=== PATIENT | male | born 1955 | race Caucasian/White ===

== ENCOUNTER 2020-05-03 16:16 | Outpatient (REF) | payer OTHER, SELFPAY ==
[2020-05-03 17:10] LABS: Creatinine Urine 27.49 mg/dL; Microalbumin Urine < 5.0 mg/L
== END 2020-05-03 16:17 | disposition home or self-care (01) ==
LOC: HO.LNP 16:16
PROVIDERS: Visit Provider Family Medicine
DX: I10 Essential (primary) hypertension (principal)
CPT/HCPCS: 82043

== ENCOUNTER 2021-10-27 07:15 | Outpatient (REF) | payer OTHER, SELFPAY ==
[2021-10-27 07:29] LABS: MANUAL DIFF FLAG NO
[2021-10-27 07:36] LABS: Basophils Percent Auto 0.7 % (0-2); Eosinophils Absolute Auto 0.2 X10*3/uL (0.0-0.4); Eosinophils Percent Auto 3.6 % (0-4); Hematocrit 41.3 % (42.0-52.0); Hemoglobin 13.5 g/dl (14.0-18.0); Imm Gran Abs Auto 0.01 X10*3/uL (0.00-0.03); Imm Gran Pct Auto 0.2 % (0.0-0.4); Lymphocytes Absolute Auto 2.8 X10*3/uL (1.2-4.9); Lymphocytes Percent Auto 46.7 % (20-40); Mean Corpuscular HGB Conc 32.7 g/dl (31.0-36.0); Mean Corpuscular Hemoglobin 30.1 pg (27.0-33.0); Mean Platelet Volume 9.1 fL (9.4-12.4); Monocytes Absolute Auto 0.5 X10*3/uL (0.1-1.2); Monocytes Percent Auto 8.6 % (2-11); Neutrophils Absolute Auto 2.4 x10*3/uL (2.0-8.3); Neutrophils Percent Auto 40.2 % (45-73); Platelet Count 224 X10*3/uL (160-400); Red Blood Count 4.49 X10*6/uL (4.60-5.80); Red Cell Distribution Width 13.1 % (11.0-16.0)
[2021-10-27 08:04] LABS: Alanine Aminotransferase 17 U/L (0-40); Alkaline Phosphatase 66 U/L (39-117); Anion Gap 10 (12-20); Aspartate Amino Transferase 16 U/L (5-37); Bilirubin Total 0.9 mg/dL (0.0-1.0); Blood Urea Nitrogen 12 mg/dL (9-16); Calcium 9.2 mg/dL (8.4-10.2); Carbon Dioxide 26 mmol/L (22-29); Chloride 108 mmol/L (96-108); Cholesterol 188 mg/dL; Estimated Glomerular Filt Rate > 60; Glucose Fasting 98 mg/dL (60-99); HDL Cholesterol 44 mg/dL; LDL Cholesterol Calculated 125 mg/dl; Potassium 4.1 mmol/L (3.3-5.1); Sodium 140 mmol/L (135-145); Total Protein 6.8 g/dL (6.5-8.0); Triglycerides 96 mg/dL
[2021-10-27 08:11] LABS: Appearance Urine CLEAR; Color Urine YELLOW; Glucose Urine UA NEG (NEG); Leukocyte Esterase Urine NEG (NEG); Nitrite Urine NEG (NEG); Specific Gravity - Urine 1.025 (1.005-1.025); Urine Blood NEG (NEG); Urine Ketones NEG (NEG); Urine Protein NEG (NEG-TRACE)
[2021-10-27 08:30] LABS: TSH reflex Free T4 4.59 uIU/mL (0.32-4.0)
[2021-10-27 09:07] LABS: Free T4 (Free Thyroxine) 0.87 ng/dL (0.71-1.85)
== END 2021-10-27 07:16 | disposition home or self-care (01) ==
LOC: HO.LAB 07:15
PROVIDERS: PCP Internal Medicine; Visit Provider Internal Medicine
DX: E78.00 Pure hypercholesterolemia, unspecified (principal); I10 Essential (primary) hypertension
CPT/HCPCS: 36415; 80053; 80061; 81003; 84439; 84443; 85025

== ENCOUNTER 2022-06-01 06:57 | Outpatient (REF) | payer OTHER, SELFPAY ==
[2022-06-01 07:19] LABS: MANUAL DIFF FLAG NO
[2022-06-01 08:15] LABS: Basophils Absolute Auto 0.1 X10*3/uL (0.0-0.2); Basophils Percent Auto 0.9 % (0-2); Eosinophils Absolute Auto 0.4 X10*3/uL (0.0-0.4); Eosinophils Percent Auto 5.3 % (0-4); Hematocrit 41.8 % (42.0-52.0); Hemoglobin 13.7 g/dl (14.0-18.0); Imm Gran Abs Auto 0.05 X10*3/uL (0.00-0.03); Imm Gran Pct Auto 0.7 % (0.0-0.4); Lymphocytes Absolute Auto 2.9 X10*3/uL (1.2-4.9); Lymphocytes Percent Auto 40.5 % (20-40); Mean Corpuscular HGB Conc 32.8 g/dl (31.0-36.0); Mean Corpuscular Hemoglobin 29.8 pg (27.0-33.0); Mean Corpuscular Volume 90.9 fL (80.0-98.0); Mean Platelet Volume 9.1 fL (9.4-12.4); Monocytes Absolute Auto 0.6 X10*3/uL (0.1-1.2); Neutrophils Absolute Auto 3.1 x10*3/uL (2.0-8.3); Neutrophils Percent Auto 43.6 % (45-73); Platelet Count 266 X10*3/uL (160-400); Red Cell Distribution Width 13.3 % (11.0-16.0)
[2022-06-01 08:34] LABS: Appearance Urine Clear; Color Urine Yellow; Glucose Urine UA Negative (Negative); Leukocyte Esterase Urine Negative (Negative); Nitrite Urine Negative (Negative); PH 5.5 (5.0-9.0); Specific Gravity - Urine 1.015 (1.005-1.025); Urine Blood Negative (Negative); Urine Ketones Negative (Negative); Urine Protein Negative (Neg-Trace)
[2022-06-01 09:01] LABS: Alanine Aminotransferase 17 U/L (0-40); Albumin Level 4.7 g/dL (3.5-5.0); Alkaline Phosphatase 69 U/L (39-117); Anion Gap 10 (12-20); Aspartate Amino Transferase 12 U/L (5-37); Bilirubin Total 0.8 mg/dL (0.0-1.0); Blood Urea Nitrogen 16 mg/dL (9-16); Calcium 9.1 mg/dL (8.4-10.2); Carbon Dioxide 29 mmol/L (22-29); Chloride 107 mmol/L (96-108); Cholesterol 245 mg/dL; Estimated Glomerular Filt Rate > 60; Free T4 (Free Thyroxine) 0.89 ng/dL (0.71-1.85); Glucose Fasting 92 mg/dL (60-99); HDL Cholesterol 43 mg/dL; LDL Cholesterol Calculated 175 mg/dl; Potassium 4.6 mmol/L (3.3-5.1); Sodium 141 mmol/L (135-145); Thyroid Stimulating Hormone 3.74 uIU/mL (0.32-4.0); Total Protein 6.8 g/dL (6.5-8.0); Triglycerides 138 mg/dL
== END 2022-06-01 06:58 | disposition home or self-care (01) ==
LOC: HO.LAB 06:57
PROVIDERS: PCP Internal Medicine; Visit Provider Internal Medicine
DX: E03.9 Hypothyroidism, unspecified (principal); R79.89 Other specified abnormal findings of blood chemistry; I10 Essential (primary) hypertension; E78.00 Pure hypercholesterolemia, unspecified
CPT/HCPCS: 36415; 80053; 80061; 81003; 84439; 84443; 85025

== ENCOUNTER 2023-02-05 09:38 | Outpatient (REF) | payer OTHER, SELFPAY ==
[2023-02-05 09:49] LABS: MANUAL DIFF FLAG NO
[2023-02-05 10:29] LABS: Basophils Absolute Auto 0.1 X10*3/uL (0.0-0.2); Basophils Percent Auto 0.6 % (0-2); Eosinophils Absolute Auto 0.2 X10*3/uL (0.0-0.4); Eosinophils Percent Auto 1.8 % (0-4); Hematocrit 44.2 % (42.0-52.0); Hemoglobin 14.5 g/dl (14.0-18.0); Imm Gran Abs Auto 0.03 X10*3/uL (0.00-0.03); Imm Gran Pct Auto 0.4 % (0.0-0.4); Lymphocytes Absolute Auto 2.2 X10*3/uL (1.2-4.9); Lymphocytes Percent Auto 26.4 % (20-40); Mean Corpuscular HGB Conc 32.8 g/dl (31.0-36.0); Mean Corpuscular Hemoglobin 30.4 pg (27.0-33.0); Mean Corpuscular Volume 92.7 fL (80.0-98.0); Mean Platelet Volume 9.2 fL (9.4-12.4); Monocytes Absolute Auto 0.7 X10*3/uL (0.1-1.2); Monocytes Percent Auto 8.1 % (2-11); Neutrophils Absolute Auto 5.2 x10*3/uL (2.0-8.3); Neutrophils Percent Auto 62.7 % (45-73); Platelet Count 234 X10*3/uL (160-400); Red Blood Count 4.77 X10*6/uL (4.60-5.80); Red Cell Distribution Width 12.7 % (11.0-16.0); White Blood Count 8.3 X10*3/uL (4.8-10.8)
[2023-02-05 11:20] LABS: Appearance Urine Clear; Color Urine Yellow; Glucose Urine UA Negative (Negative); Leukocyte Esterase Urine Negative (Negative); Nitrite Urine Negative (Negative); PH 6.5 (5.0-9.0); Specific Gravity - Urine 1.015 (1.005-1.025); Urine Blood Negative (Negative); Urine Ketones Negative (Negative); Urine Protein Negative (Neg-Trace)
[2023-02-05 11:30] LABS: Alanine Aminotransferase 19 U/L (0-40); Albumin Level 4.2 g/dL (3.5-5.0); Alkaline Phosphatase 68 U/L (39-117); Anion Gap 10 (12-20); Aspartate Amino Transferase 12 U/L (5-37); Bilirubin Total 0.7 mg/dL (0.0-1.0); Blood Urea Nitrogen 10 mg/dL (9-16); Carbon Dioxide 29 mmol/L (22-29); Chloride 108 mmol/L (96-108); Cholesterol 179 mg/dL; Estimated Glomerular Filt Rate > 60; Glucose Fasting 96 mg/dL (60-99); HDL Cholesterol 43 mg/dL; LDL Cholesterol Calculated 101 mg/dl; Potassium 4.1 mmol/L (3.3-5.1); Sodium 143 mmol/L (135-145); Total Protein 7.6 g/dL (6.5-8.0); Triglycerides 179 mg/dL
[2023-02-05 11:33] LABS: TSH reflex Free T4 4.14 uIU/mL (0.32-4.0)
[2023-02-05 11:41] LABS: Folate 13.2 ng/mL (> or = 4.0); Vitamin B12 479 pg/mL (200-900)
[2023-02-05 13:22] LABS: Free T4 (Free Thyroxine) 0.77 ng/dL (0.71-1.85)
== END 2023-02-05 09:39 | disposition home or self-care (01) ==
LOC: HO.LAB 09:38
PROVIDERS: PCP Internal Medicine; Visit Provider Internal Medicine
DX: E55.9 Vitamin D deficiency, unspecified (principal); E53.8 Deficiency of other specified B group vitamins; R30.0 Dysuria; E78.00 Pure hypercholesterolemia, unspecified; I10 Essential (primary) hypertension
CPT/HCPCS: 36415; 80053; 80061; 81003; 82306; 82607; 82746; 84439; 84443; 85025

== ENCOUNTER 2023-02-10 16:41 | Outpatient (AMB) | payer OTHER, SELFPAY ==
[2023-02-10 16:43] VITALS: BP 148/86; PULSE 83; O2SAT 97; BMI 29.9
--- NOTE | 2023-02-10 16:43 | MHC.PC.OV ---
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 Accompanied by: Self / Same As Patient Allergies No Known Allergies Allergy (Verified 02/10/23 17:00) Medication List - Last Reconciled 02/10/23 by Dawson Law MD simvastatin 20 mg PO DAILY Tobacco use date assessed: 02/10/23 Fall risk assessment: No Falls in past year Last assessed Fall Risk: 02/10/23 Dental Screening Dental Screen Date: 02/10/23 Did you have a dental visit in the last 12 months?: No Did you have a dental problem in the last 6 months where you did not have access to dental care?: No Was dental information given to patient?: Patient has dentist HPI Annual Exam HPI Details Patient comes in today for his annual physical examination States that he currently feels okay He denies any headaches or dizziness Denies any chest pains, no shortness of breath No nausea /vomiting, no abdominal pain No change in bowel habits noted Denies any acute urinary symptoms Had his follow up labs done a few days ago - to discuss his results Had his screening colonoscopy done with Dr. Kim in 2014 - recommended to get repeat colonoscopy in 10 years (2024) [facility] Medical History Benign essential hypertension Obesity (BMI 30-39.9) Overweight (BMI 25.0-29.9) Pure hypercholesterolemia Seasonal allergies Surgical History No pertinent past surgical history Family History Mother CHF (congestive heart failure) Father Brain aneurysm Other Mental health problem Social History Housing: House Alcohol intake: former Patient Tobacco Use Status: Never used Tobacco e-Cigarette/Vaping Use: Never Used Second Hand Smoke Exposure: Yes service: No Current occupational status: employed Cognitive needs: No Hearing needs: No Vision needs: Yes Questionnaire PHQ-9 Over the last 2 weeks, how often have you been bothered by any of the following problems? 1. Little interest or pleasure in doing things: not at all 2. Feeling down, depressed, or hopeless: not at all 3. Trouble falling or staying asleep, or sleeping too much: not at all 4. Feeling tired or having little energy: not at all 5. Poor appetite or overeating: not at all 6. Feeling bad about yourself - or that you are a failure or have let yourself or your family down: not at all 7. Trouble concentrating on things, such as reading the newspaper or watching television: not at all 8. Moving or speaking so slowly that other people could have noticed. Or the opposite - being so fidgety or restless that you have been moving around a lot more than usual: not at all 9. Thoughts that you would be better off or of hurting yourself in some way: not at all Total score: 0 Depression Screening Interpretation: Negative 53332 - PHQ-9 Billing: Yes Source: Developed by Drs. Dougie Pike, Ronda Jung, Zay Theodore and colleagues, with an educational dee from [employer]. Thrive Questionnaire Date Thrive assessed: 02/10/23 I am a: Patient What is your living situation today?: I have a steady place to live Within the past 12 months, did the food you bought not last and you didn't have the money to get more?: Never true Within the past 12 months, did you worry whether your food would run out before you got money to buy more?: Never true Do you have trouble paying for medicines?: No Do you have trouble getting transportation to medical appointments?: No Do you have trouble paying your heating and electricity bill?: No Do you have trouble taking care of your child, family member or friend?: No Do you have trouble with day-to-day activities such as bathing, preparing meals, shopping, managing finances, etc.?: No Are you currently unemployed and looking for a job?: No Are you interested in more education?: No Please select the resources that you would like help with: None Currently or been in a relationship where the following occur: no concerns reported AUDIT C Alcohol Use Questionnaire (AUDIT-C) 1. How often do you have a drink containing alcohol?: Never Total Score: 0 Score Reviewed/Action Taken: Yes BRITTNEY-7 AMB Questionnaire BRITTNEY-7 Date BRITTNEY - 7 assessed: 02/10/23 Feeling nervous, anxious, or on edge: 0 = Not at all Not being able to stop or control worryin = Not at all Worrying too much about different things: 0 = Not at all Trouble relaxin = Not at all Being so restless that it is hard to sit still: 0 = Not at all Becoming easily annoyed or irritable: 0 = Not at all Feeling afraid as if something awful might happen: 0 = Not at all Total BRITTNEY-7 score (0-4 normal; 5-9 mild; 10-14 moderate; 15-21 severe): 0 Source: Developed by Drs. Dougie Pike, Ronda Jung, Zay Theodore and colleagues, with an educational dee from [employer]. Review of Systems Const Denies chills, Denies fatigue, Denies fever(s), Denies headache(s), Denies malaise and Denies weakness Eyes Denies blurry vision, Denies change in vision, Denies irritation and Denies itchy eyes ENT Denies dysphagia, Denies dizziness, Denies otalgia, Denies headache(s), Denies nasal congestion, Denies neck pain, Denies odynophagia and Denies sore throat Card Denies chest pain, Denies rapid heart rate, Denies irregular heart rhythm, Denies palpitations and Denies dyspnea Resp Denies chest congestion, Denies cough, Denies dyspnea and Denies wheezing GI Denies abdominal pain, Denies bloating, Denies constipation, Denies dysphagia, Denies heartburn, Denies diarrhea, Denies nausea, Denies odynophagia and Denies vomiting Denies hematuria, Denies difficulty urinating, Denies dysuria, Denies urinary frequency and Denies urinary urgency Musc Denies back pain, Denies arthralgias, Denies joint swelling, Denies muscle weakness and Denies neck pain Skin/Breast Denies change in pigmentation, Denies lesions, Denies rash and Denies unusual bruising Neuro Denies dizziness, Denies headache(s), Denies paresthesias and Denies weakness Endo Denies fatigue and Denies palpitations Aller/Immun Denies itchy eyes and Denies wheezing Physical exam (Primary Care) Vital Signs: Last Vital Signs Pulse 83 02/10/23 16:43 BP 148/86 H 02/10/23 16:43 Pulse Ox 97 02/10/23 16:43 Oxygen Delivery Method Room Air 02/10/23 16:43 BMI result Body Mass Index 29.9 Tobacco/Smoking Status: Tobacco use Status Tobacco use date assessed 02/10/23 02/10/23 16:48 Patient Tobacco Use Status Never used Tobacco 02/10/23 16:48 e-Cigarette/Vaping Use Never Used 02/10/23 16:48 PHQ-9: PHQ-9 Score PHQ-9: Total score 0 02/11/23 02:17 Depression Screening Interpretation: Negative Thrive Assessment: Date of Thrive Assessment Date Thrive assessed 02/10/23 02/10/23 16:48 Currently or been in a relationship where the following occur: no concerns reported Const General: no acute distress, alert and awake Orientation/consciousness: patient oriented x3 HENMT Head: Yes normocephalic and Yes atraumatic Ears: external ears normal, TM's normal bilaterally and EAC's normal General nose exam: No nasal discharge present Face and sinus: Yes normal facial exam and Yes sinuses nontender Teeth and gingiva: dentition normal Throat: Yes posterior oropharynx normal and Yes tonsils normal (no TP congestion) Eyes Eyelids: Yes eyelids normal Conjunctivae: conjunctivae normal Pupils: Equal, round and reactive pupils present EOM: EOMs intact bilaterally Neck Neck: Yes no lymphadenopathy and Yes supple Thyroid: Thyroid normal Resp Auscultation: clear to auscultation bilaterally, no rales and no wheezes Cardio Rate: regular rate Rhythm: regular rhythm Heart sounds: no murmurs GI Palpation (GI): Soft to palpation, nontender and No hepatosplenomegaly present Auscultation: normal bowel sounds General: Yes no CVA tenderness Back/Spine/Pelvis Back: no CVA tenderness Thoracic/Lumbar Spine: thoracic and lumbar spine normal to inspection Skin Lesions: no lesions Rashes: no rashes Neuro General: patient oriented x3, moves all extremities, no focal motor deficits and CN's II-XI intact bilaterally Cranial nerves: Yes Equal, round and reactive pupils present Cognition (Neuro): normal cognition Gait exam (Neuro): Normal gait present Extrem General: Yes no clubbing, cyanosis or edema Results Reviewed Results Reviewed: Laboratory Tests 02/05/23 02/05/23 02/05/23 09:46 09:46 09:46 WBC 8.3 Hgb 14.5 Hct 44.2 Plt Count 234 Sodium 143 Potassium 4.1 Creatinine 0.99 Estimated GFR > 60 Fasting Glucose 96 Calcium 10.0 D AST 12 ALT 19 Triglycerides 179 Cholesterol 179 LDL Cholesterol, Calc 101 HDL Cholesterol 43 25-OH Vitamin D Total 38.0 TSH 4.14 H Free T4 0.77 Ur Specific [place] 1.015 Urine Protein Negative Urine Glucose (UA) Negative Urine Blood Negative Assessment and Plan Assessment & Plan (1) Annual physical exam: Code(s): Z00.00 - Encounter for general adult medical examination without abnormal findings Plan: Results of his labs done a few days ago reviewed and discussed with patient He is up-to-date with his cancer screenings - is not due for repeat colonoscopy until 2024 (2) Pure hypercholesterolemia: Code(s): E78.00 - Pure hypercholesterolemia, unspecified Plan: Reinforced low cholesterol diet - advised that his cholesterol levels have improved significantly from previous Continue Simvastatin 20 mg QD Will recheck his labs and fasting lipids in 6 months for follow up (3) Benign essential hypertension: Code(s): I10 - Essential (primary) hypertension Plan: Reinforced low sodium diet - goal is systolic BP of at least 130 mm or less Advised patient that his BP today is still high - his systolic BP appears to be running consistently over 140 mm Patient is again requesting to hold off on starting Rx for his BP and would like to keep working on getting it lower with diet modification and lifestyle changes at this time States that his was ill recently and this interrupted their attempt to change their eating habits and lifestyle/activities and is planning to get back on them soon Patient is advised again to continue monitoring his blood pressure regularly to assess for the possibility of white coat syndrome, and that if his systolic BP remains consistently high through his next follow up visit, we will most likely need to start him on antihypertensives then (4) Mild anemia: Code(s): D64.9 - Anemia, unspecified Plan: Corrected - his H/H were normal on his recent labs Will continue to monitor his CBC routinely (5) Elevated TSH: Code(s): R79.89 - Other specified abnormal findings of blood chemistry Plan: Advised that his serum TSH level is again slightly off (elevated) but his free T4 level remains normal and patient is clinically euthyroid Will continue to monitor his TFTs regularly for now (6) Overweight (BMI 25.0-29.9): Code(s): E66.3 - Overweight Plan: Reinforced diet/exercise as tolerated/lose weight Plan Follow up in 6 months Orders: Orders Comprehensive [place]. Panel Fast 6 Months E78.00 - Pure hypercholesterolemia, unspecified Lipid Panel 6 Months E78.00 - Pure hypercholesterolemia, unspecified Complete Blood Count Auto Diff 6 Months I10 - Essential (primary) hypertension UA CC w/rflx Micro + Cult 6 Months R30.0 - Dysuria Free T4 (Free Thyroxine) 6 Months R79.89 - Other specified abnormal findings of blood chemistry Thyroid Stimulating Hormone 6 Months R79.89 - Other specified abnormal findings of blood chemistry Coding Level of Care Code Est Pt Prev Care >65y(46345) Diagnoses Annual physical exam Z00.00 Pure hypercholesterolemia E78.00 Benign essential hypertension I10 Mild anemia D64.9 Elevated TSH R79.89 Overweight (BMI 25.0-29.9) E66.3
== END 2023-02-10 17:30 | disposition home or self-care (01) ==
PROVIDERS: PCP Internal Medicine; Visit Provider Internal Medicine
DX: Z00.00 Encounter for general adult medical examination without abnormal findings (principal); E78.00 Pure hypercholesterolemia, unspecified; I10 Essential (primary) hypertension; D64.9 Anemia, unspecified; R79.89 Other specified abnormal findings of blood chemistry; E66.3 Overweight
CPT/HCPCS: 99397

== ENCOUNTER 2023-08-09 10:34 | Outpatient (AMB) | payer OTHER, SELFPAY ==
[2023-08-09 10:37] VITALS: BP 138/86; PULSE 80; O2SAT 96; BMI 30.6
--- NOTE | 2023-08-09 10:37 | A.OFFPC_ITS ---
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 Accompanied by: Self / Same As Patient Allergies No Known Allergies Allergy (Verified 08/09/23 11:02) Medication List - Last Reconciled 08/09/23 by Dawson Law MD simvastatin 20 mg PO DAILY Tobacco use date assessed: 08/09/23 Fall risk assessment: No Falls in past year Last assessed Fall Risk: 08/09/23 Dental Screening Dental Screen Date: 08/09/23 Did you have a dental visit in the last 12 months?: No Did you have a dental problem in the last 6 months where you did not have access to dental care?: No Was dental information given to patient?: No HPI 6 month f/u HPI Details Patient comes in today for his follow up visit States that he feels okay He denies any headaches or dizziness Denies any chest pains, no SOB No nausea/vomiting, no abdominal pain No change in bowel habits noted Needs his Simvastatin Rx refilled He did not get his follow up labs done prior to his appt today as he thought today was just for follow up of his blood pressure Would also like to get a referral to ENT for evaluation of his hearing States that his keeps asking him to get his hearing checked as he would often not hear her when she is calling out to him or talking to him Patient states that he is often exposed to loud noises at work and often does n ot wear any protective gear even though they have been advised to Recalls that he has been told in the past that he has some hearing loss in his ears [facility] Medical History (Updated 08/09/23 @ 11:29 by Dawson Law MD) Obesity (BMI 30-39.9) Benign essential hypertension Pure hypercholesterolemia Seasonal allergies Surgical History No pertinent past surgical history Family History Mother CHF (congestive heart failure) Father Brain aneurysm Other Mental health problem Social History Housing: House Alcohol intake: former Patient Tobacco Use Status: Never used Tobacco e-Cigarette/Vaping Use: Never Used Second Hand Smoke Exposure: Yes service: No Current occupational status: employed Cognitive needs: No Hearing needs: No Vision needs: Yes Questionnaire PHQ-9 Over the last 2 weeks, how often have you been bothered by any of the following problems? 1. Little interest or pleasure in doing things: not at all 2. Feeling down, depressed, or hopeless: not at all 3. Trouble falling or staying asleep, or sleeping too much: not at all 4. Feeling tired or having little energy: not at all 5. Poor appetite or overeating: not at all 6. Feeling bad about yourself - or that you are a failure or have let yourself or your family down: not at all 7. Trouble concentrating on things, such as reading the newspaper or watching television: not at all 8. Moving or speaking so slowly that other people could have noticed. Or the opposite - being so fidgety or restless that you have been moving around a lot more than usual: not at all 9. Thoughts that you would be better off or of hurting yourself in some way: not at all Total score: 0 Depression Screening Interpretation: Negative Depression Screening Done: Yes 41343 - PHQ-9 Billing: Yes Source: Developed by Drs. Dougie Pike, Ronda Jung, Zay Theodore and colleagues, with an educational dee from [employer]. Thrive Questionnaire Date Thrive assessed: 08/09/23 I am a: Patient What is your living situation today?: I have a steady place to live Within the past 12 months, did the food you bought not last and you didn't have the money to get more?: Never true Within the past 12 months, did you worry whether your food would run out before you got money to buy more?: Never true Do you have trouble paying for medicines?: No Do you have trouble getting transportation to medical appointments?: No Do you have trouble paying your heating and electricity bill?: No Do you have trouble taking care of your child, family member or friend?: No Do you have trouble with day-to-day activities such as bathing, preparing meals, shopping, managing finances, etc.?: No Are you currently unemployed and looking for a job?: No Are you interested in more education?: No Please select the resources that you would like help with: None Currently or been in a relationship where the following occur: no concerns reported THRIVE Score: 0 AUDIT C Alcohol Use Questionnaire (AUDIT-C) 1. How often do you have a drink containing alcohol?: Never Total Score: 0 Score Reviewed/Action Taken: Yes BRITTNEY-7 AMB Questionnaire BRITTNEY-7 Date BRITTNEY - 7 assessed: 08/09/23 Feeling nervous, anxious, or on edge: 0 = Not at all Not being able to stop or control worryin = Not at all Worrying too much about different things: 0 = Not at all Trouble relaxin = Not at all Being so restless that it is hard to sit still: 0 = Not at all Becoming easily annoyed or irritable: 0 = Not at all Feeling afraid as if something awful might happen: 0 = Not at all Total BRITTNEY-7 score (0-4 normal; 5-9 mild; 10-14 moderate; 15-21 severe): 0 Source: Developed by Drs. Dougie Pike, Ronda Jung, Zay Theodore and colleagues, with an educational dee from [employer]. Review of Systems Const Denies chills, Denies fatigue, Denies fever(s) and Denies headache(s) ENT Denies dysphagia, Denies dizziness, Denies otalgia, Denies headache(s), Reports hearing loss (see HPI), Denies neck pain, Denies odynophagia and Denies sore throat Card Denies chest pain, Denies rapid heart rate, Denies irregular heart rhythm, Denies palpitations and Denies dyspnea Resp Denies chest congestion, Denies cough, Denies dyspnea and Denies wheezing GI Denies abdominal pain, Denies constipation, Denies dysphagia, Denies diarrhea, Denies nausea, Denies odynophagia and Denies vomiting Denies hematuria, Denies difficulty urinating, Denies dysuria and Denies urinary frequency Musc Denies back pain, Denies arthralgias and Denies neck pain Skin/Breast Denies rash Neuro Denies dizziness, Denies headache(s) and Denies paresthesias Endo Denies fatigue and Denies palpitations Aller/Immun Denies wheezing Physical exam (Primary Care) Vital Signs: Last Vital Signs Pulse 80 08/09/23 10:37 BP 138/86 08/09/23 10:37 Pulse Ox 96 08/09/23 10:37 Oxygen Delivery Method Room Air 08/09/23 10:37 BMI result Body Mass Index 30.6 Tobacco/Smoking Status: Tobacco use Status Tobacco use date assessed 08/09/23 08/09/23 10:39 Patient Tobacco Use Status Never used Tobacco 08/09/23 10:39 e-Cigarette/Vaping Use Never Used 08/09/23 10:39 PHQ-9: PHQ-9 Score PHQ-9: Total score 0 08/09/23 10:46 Depression Screening Interpretation: Negative Thrive Assessment: Date of Thrive Assessment Date Thrive assessed 08/09/23 08/09/23 10:39 Currently or been in a relationship where the following occur: no concerns reported Const General: no acute distress and alert HENMT Ears: TM's normal bilaterally and EAC's normal Throat: Yes posterior oropharynx normal and Yes tonsils normal (no TP congestion) Neck Neck: Yes no lymphadenopathy and Yes supple Thyroid: Thyroid normal Resp Auscultation: clear to auscultation bilaterally, no rales and no wheezes Cardio Rate: regular rate Rhythm: regular rhythm Heart sounds: no murmurs GI Palpation (GI): Soft to palpation and nontender Auscultation: normal bowel sounds General: Yes no CVA tenderness Back/Spine/Pelvis Back: no CVA tenderness Thoracic/Lumbar Spine: thoracic and lumbar spine normal to inspection Skin Rashes: no rashes Extrem General: Yes no clubbing, cyanosis or edema Assessment and Plan Assessment & Plan (1) Pure hypercholesterolemia: Code(s): E78.00 - Pure hypercholesterolemia, unspecified Plan: Patient did not get his follow up labs done prior to his appt today as he thought today was just for follow up of his blood pressure Reinforced low cholesterol diet Continue Simvastatin 20 mg QD - Rx refilled Will recheck his labs and fasting lipids in 6 months for follow up (2) Benign essential hypertension: Code(s): I10 - Essential (primary) hypertension Plan: Reinforced low sodium diet - goal is systolic BP of at least 130 mm or less Advised patient that his BP today is still slightly elevated (systolic BP is still at 138 mm) but his blood pressure has been steadily improving over the past year Patient is still requesting to hold OFF on starting him on Rx for his BP - would like to keep working on getting it lower with diet modification and lifestyle changes for now He is reminded again to continue monitoring his blood pressure regularly (3) Mild anemia: Code(s): D64.9 - Anemia, unspecified Plan: Corrected - his H/H were normal on his most recent labs Will continue to monitor his CBC routinely (4) Elevated TSH: Code(s): R79.89 - Other specified abnormal findings of blood chemistry Plan: His serum TSH level was still slightly off (elevated) but his free T4 level remained normal on his most recent labs; patient is still clinically euthyroid Will continue to monitor his TFTs regularly for now (5) Hearing impairment: Code(s): H91.90 - Unspecified hearing loss, unspecified ear Qualifiers: Hearing loss type: unspecified Laterality: unspecified laterality Qualified Code(s): H91.90 - Unspecified hearing loss, unspecified ear Plan: Per request, will refer him to ENT for further evaluation and management [facility] also [facility] (6) Obesity (BMI 30-39.9): Code(s): E66.9 - Obesity, unspecified Plan: Reinforced diet/exercise as tolerated/lose weight - he has gained some weight since his last visit Plan To return in 6 months for his next annual physical examination Orders: Orders Complete Blood Count Auto Diff 6 Months D64.9 - Anemia, unspecified, Z00.00 - Encounter for general adult medical examination without abnormal findings Comprehensive [place]. Panel Fast 6 Months E78.00 - Pure hypercholesterolemia, unspecified, Z00.00 - Encounter for general adult medical examination without abnormal findings TSH reflex Free T4 6 Months E78.00 - Pure hypercholesterolemia, unspecified, Z00.00 - Encounter for general adult medical examination without abnormal findings UA CC w/rflx Micro + Cult 6 Months R30.0 - Dysuria, Z00.00 - Encounter for general adult medical examination without abnormal findings Prostate Specific Antigen 6 Months N40.0 - Benign prostatic hyperplasia without lower urinary tract symptoms, Z00.00 - Encounter for general adult medical examination without abnormal findings Lipid Panel 6 Months E78.00 - Pure hypercholesterolemia, unspecified, Z00.00 - Encounter for general adult medical examination without abnormal findings Vitamin D 25-OH Total 6 Months E55.9 - Vitamin D deficiency, unspecified, Z00.00 - Encounter for general adult medical examination without abnormal findings Referrals Speech and Hearing Referral H91.90 - Unspecified hearing loss, unspecified ear Ear/Nose/Throat Referral H91.90 - Unspecified hearing loss, unspecified ear Medications: Refilled simvastatin 20 mg PO DAILY 90 tabs 1RF Coding Level of Care Code Est Pt Level 4 (90211) Diagnoses Pure hypercholesterolemia E78.00 Benign essential hypertension I10 Mild anemia D64.9 Elevated TSH R79.89 Hearing loss, unspecified hearing loss type, unspecified laterality H91.90 Hearing loss type: unspecified Laterality: unspecified laterality Obesity (BMI 30-39.9) E66.9
== END 2023-08-09 11:22 | disposition home or self-care (01) ==
PROVIDERS: PCP Internal Medicine; Visit Provider Internal Medicine
DX: E78.00 Pure hypercholesterolemia, unspecified (principal); I10 Essential (primary) hypertension; E66.9 Obesity, unspecified; Z68.30 Body mass index [BMI] 30.0-30.9, adult; D64.9 Anemia, unspecified; R79.89 Other specified abnormal findings of blood chemistry; H91.93 Unspecified hearing loss, bilateral
CPT/HCPCS: 99214

== ENCOUNTER 2023-09-16 09:32 | Outpatient (REF) | payer OTHER, SELFPAY | END 2023-09-16 09:33 | disposition home or self-care (01) | LOC: HO.SH 09:32 | PROVIDERS: PCP Internal Medicine; Visit Provider Internal Medicine | DX: Z01.118 Encounter for examination of ears and hearing with other abnormal findings (principal); H90.3 Sensorineural hearing loss, bilateral | CPT/HCPCS: 92557; 92567 ==

== ENCOUNTER 2023-10-20 12:54 | Outpatient (REF) | payer OTHER, SELFPAY | END 2023-10-20 12:55 | disposition home or self-care (01) | LOC: HO.HAP 12:54 | PROVIDERS: Visit Provider Internal Medicine | DX: Z13.89 Encounter for screening for other disorder (principal) ==

== ENCOUNTER 2024-03-13 09:27 | Outpatient (AMB) | payer OTHER, SELFPAY ==
--- NOTE | 2024-03-13 09:32 | MHC.PC.OV ---
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 Accompanied by: Self / Same As Patient Allergies No Known Allergies Allergy (Verified 03/13/24 10:17) Medication List - Last Reconciled 03/13/24 by Dawson Law MD simvastatin 20 mg PO DAILY Tobacco use date assessed: 03/13/24 Fall risk assessment: No Falls in past year Last assessed Fall Risk: 03/13/24 Dental Screening Dental Screen Date: 03/13/24 Did you have a dental visit in the last 12 months?: No Did you have a dental problem in the last 6 months where you did not have access to dental care?: No Was dental information given to patient?: Patient has dentist HPI Annual Exam HPI Details Patient comes in today for his annual physical examination States that he currently feels okay He denies any headaches or dizziness Denies any chest pains, no SOB No nausea/vomiting, no abdominal pain No change in bowel habits noted He denies any acute urinary symptoms He wants to know if he should be taking Co-Q-10 tablets together with his Simvastatin as he recalls that Dr. Medellin mentioned this to him a few years ago He was not able to get his follow up labs done yet He is also not yet due for repeat colonoscopy until next year (2024) - had his previous colonoscopy done with Dr. Kim back in October 2014 and was advised then to have this repeated in 10 years [facility] Medical History Obesity (BMI 30-39.9) Benign essential hypertension Pure hypercholesterolemia Seasonal allergies Surgical History (Updated 03/13/24 @ 10:20 by Dawson Law MD) Hx of colonoscopy Family History Mother CHF (congestive heart failure) Father Brain aneurysm Other Mental health problem Social History Housing: House Alcohol intake: former Patient Tobacco Use Status: Never used Tobacco e-Cigarette/Vaping Use: Never Used Second Hand Smoke Exposure: Yes service: No Current occupational status: employed Cognitive needs: No Hearing needs: No Vision needs: Yes Questionnaire PHQ-9 Over the last 2 weeks, how often have you been bothered by any of the following problems? 1. Little interest or pleasure in doing things: not at all 2. Feeling down, depressed, or hopeless: not at all 3. Trouble falling or staying asleep, or sleeping too much: not at all 4. Feeling tired or having little energy: not at all 5. Poor appetite or overeating: not at all 6. Feeling bad about yourself - or that you are a failure or have let yourself or your family down: not at all 7. Trouble concentrating on things, such as reading the newspaper or watching television: not at all 8. Moving or speaking so slowly that other people could have noticed. Or the opposite - being so fidgety or restless that you have been moving around a lot more than usual: not at all 9. Thoughts that you would be better off or of hurting yourself in some way: not at all Total score: 0 Depression Screening Interpretation: Negative Depression Screening Done: Yes 12923 - PHQ-9 Billing: Yes Source: Developed by Drs. Dougie Pike, Ronda Jung, Zay Theodore and colleagues, with an educational dee from [employer]. Thrive Questionnaire Date Thrive assessed: 03/13/24 I am a: Patient What is your living situation today?: I have a steady place to live Within the past 12 months, did the food you bought not last and you didn't have the money to get more?: Never true Within the past 12 months, did you worry whether your food would run out before you got money to buy more?: Never true Do you have trouble paying for medicines?: No Do you have trouble getting transportation to medical appointments?: No Do you have trouble paying your heating and electricity bill?: No Do you have trouble taking care of your child, family member or friend?: No Do you have trouble with day-to-day activities such as bathing, preparing meals, shopping, managing finances, etc.?: No Are you currently unemployed and looking for a job?: No Are you interested in more education?: No Please select the resources that you would like help with: None Currently or been in a relationship where the following occur: I choose not to answer THRIVE Score: 0 AUDIT C Alcohol Use Questionnaire (AUDIT-C) 1. How often do you have a drink containing alcohol?: Never 3. How often do you have six or more drinks on one occasion?: Never Total Score: 0 Score Reviewed/Action Taken: Yes BRITTNEY-7 AMB Questionnaire BRITTNEY-7 Date BRITTNEY - 7 assessed: 03/13/24 Feeling nervous, anxious, or on edge: 0 = Not at all Not being able to stop or control worryin = Not at all Worrying too much about different things: 0 = Not at all Trouble relaxin = Not at all Being so restless that it is hard to sit still: 0 = Not at all Becoming easily annoyed or irritable: 0 = Not at all Feeling afraid as if something awful might happen: 0 = Not at all Total BRITTNEY-7 score (0-4 normal; 5-9 mild; 10-14 moderate; 15-21 severe): 0 Source: Developed by Drs. Dougie Pike, Ronda Jung, Zay Theodore and colleagues, with an educational dee from [employer]. Review of Systems Const Denies chills, Denies fatigue, Denies fever(s), Denies headache(s), Denies malaise and Denies weakness Eyes Denies blurry vision, Denies change in vision, Denies irritation and Denies itchy eyes ENT Denies dysphagia, Denies dizziness, Denies otalgia, Denies headache(s), Denies nasal congestion, Denies neck pain, Denies odynophagia and Denies sore throat Card Denies chest pain, Denies rapid heart rate, Denies irregular heart rhythm, Denies palpitations and Denies dyspnea Resp Denies chest congestion, Denies cough, Denies dyspnea and Denies wheezing GI Denies abdominal pain, Denies bloating, Denies constipation, Denies dysphagia, Denies heartburn, Denies diarrhea, Denies nausea, Denies odynophagia and Denies vomiting Denies hematuria, Denies difficulty urinating, Denies dysuria, Denies urinary frequency and Denies urinary urgency Musc Denies back pain, Denies arthralgias, Denies joint swelling, Denies muscle weakness and Denies neck pain Skin/Breast Denies change in pigmentation, Denies lesions, Denies rash and Denies unusual bruising Neuro Denies dizziness, Denies headache(s), Denies paresthesias and Denies weakness Endo Denies fatigue and Denies palpitations Aller/Immun Denies itchy eyes and Denies wheezing Physical exam (Primary Care) Vital Signs: Last Vital Signs Pulse 65 03/13/24 09:33 BP 148/86 H 03/13/24 10:21 Pulse Ox 97 03/13/24 09:33 Oxygen Delivery Method Room Air 03/13/24 09:33 BMI result Body Mass Index 30.2 Tobacco/Smoking Status: Tobacco use Status Tobacco use date assessed 03/13/24 03/13/24 09:35 Patient Tobacco Use Status Never used Tobacco 03/13/24 09:35 e-Cigarette/Vaping Use Never Used 03/13/24 09:35 PHQ-9: PHQ-9 Score PHQ-9: Total score 0 03/13/24 10:18 Depression Screening Interpretation: Negative Thrive Assessment: Date of Thrive Assessment Date Thrive assessed 03/13/24 03/13/24 09:35 Currently or been in a relationship where the following occur: I choose not to answer Const General: no acute distress, alert and awake Orientation/consciousness: patient oriented x3 HENMT Head: Yes normocephalic and Yes atraumatic Ears: external ears normal, TM's normal bilaterally and EAC's normal General nose exam: No nasal discharge present Face and sinus: Yes normal facial exam and Yes sinuses nontender Teeth and gingiva: dentition normal Throat: Yes posterior oropharynx normal and Yes tonsils normal (no TP congestion) Eyes Eyelids: Yes eyelids normal Conjunctivae: conjunctivae normal Pupils: Equal, round and reactive pupils present EOM: EOMs intact bilaterally Neck Neck: Yes no lymphadenopathy and Yes supple Thyroid: Thyroid normal Resp Auscultation: clear to auscultation bilaterally, no rales and no wheezes Cardio Rate: regular rate Rhythm: regular rhythm Heart sounds: no murmurs GI Palpation (GI): Soft to palpation, nontender and No hepatosplenomegaly present Auscultation: normal bowel sounds General: Yes no CVA tenderness Back/Spine/Pelvis Back: no CVA tenderness Thoracic/Lumbar Spine: thoracic and lumbar spine normal to inspection Skin Lesions: no lesions Rashes: no rashes Neuro General: patient oriented x3, moves all extremities, no focal motor deficits and CN's II-XI intact bilaterally Cranial nerves: Yes Equal, round and reactive pupils present Cognition (Neuro): normal cognition Gait exam (Neuro): Normal gait present Extrem General: Yes no clubbing, cyanosis or edema Assessment and Plan Assessment & Plan (1) Annual physical exam: Code(s): Z00.00 - Encounter for general adult medical examination without abnormal findings Plan: Patient is advised to try to get his previously ordered labs done DEVON to complete his annual physical - this includes his PSA level as well He is up-to-date with his colon cancer screening - last had his colonoscopy done with Dr. Kim in October 2014 and was advised to get this repeated in 10 years so he will be due for his repeat colonoscopy next year (2024) (2) Pure hypercholesterolemia: Code(s): E78.00 - Pure hypercholesterolemia, unspecified Plan: Reinforced low cholesterol diet He is instructed to get his follow up labs done DEVON to recheck his cholesterol levels Continue Simvastatin 20 mg QD Have advised him that IF he is not experiencing any issues related to his cholesterol medicine (more commonly, myalgia or muscle weakness), then he does NOT need to take Co-Q-10 or any other supplements along with his meds Advised that Co-Q-10 will not help with his cholesterol or blood pressure Will have him recheck his labs and fasting lipids again in 6 months for follow up (3) Benign essential hypertension: Code(s): I10 - Essential (primary) hypertension Plan: Reinforced low sodium diet - goal is systolic BP of at least 130 mm or less Have advised patient that his BP today is still elevated - systolic BP is around 150 mm even when it was rechecked a few minutes later Patient is still requesting to hold OFF on starting him on Rx for his BP and he would like to keep working on getting it lower with diet modification and lifestyle changes for now Have cautioned him again on the potential long-term consequences and adverse effects of uncontrolled high blood pressure, including heart disease/heart failure as well as kidney disease; cautioned as well on the short-term dangers of high BP, including heart attack or stroke He is reminded again to continue monitoring his blood pressure regularly Will also try to have our nurse navigators follow up with him on his blood pressure monitoring as well (4) Mild anemia: Code(s): D64.9 - Anemia, unspecified Plan: Corrected - his H/H were normal on his recent labs Will continue to monitor his CBC routinely (5) Elevated TSH: Code(s): R79.89 - Other specified abnormal findings of blood chemistry Plan: His serum TSH level was still slightly off (elevated) but his free T4 level remained normal on his previous labs; patient is still clinically euthyroid Will continue to monitor his TFTs regularly (6) Hearing impairment: Code(s): H91.90 - Unspecified hearing loss, unspecified ear Qualifiers: Hearing loss type: unspecified Laterality: unspecified laterality Qualified Code(s): H91.90 - Unspecified hearing loss, unspecified ear Plan: [facility] and with ENT as scheduled (7) Obesity (BMI 30-39.9): Code(s): E66.9 - Obesity, unspecified Plan: Reinforced diet/exercise as tolerated/lose weight Plan Follow up in 6 months Orders: Orders Comprehensive [place]. Panel Fast 6 Months E78.00 - Pure hypercholesterolemia, unspecified TSH reflex Free T4 6 Months E78.00 - Pure hypercholesterolemia, unspecified Complete Blood Count Auto Diff 6 Months D64.9 - Anemia, unspecified Lipid Panel 6 Months E78.00 - Pure hypercholesterolemia, unspecified UA CC w/rflx Micro + Cult 6 Months R30.0 - Dysuria Coding Level of Care Code Est Pt Prev Care >65y(74536) Diagnoses Annual physical exam Z00.00 Pure hypercholesterolemia E78.00 Benign essential hypertension I10 Mild anemia D64.9 Elevated TSH R79.89 Hearing loss, unspecified hearing loss type, unspecified laterality H91.90 Hearing loss type: unspecified Laterality: unspecified laterality Obesity (BMI 30-39.9) E66.9
[2024-03-13 09:33] VITALS: BP 150/82; PULSE 65; O2SAT 97; BMI 30.2
[2024-03-13 10:21] VITALS: BP 148/86
== END 2024-03-13 10:31 | disposition home or self-care (01) ==
PROVIDERS: PCP Internal Medicine; Visit Provider Internal Medicine
DX: Z00.00 Encounter for general adult medical examination without abnormal findings (principal); E78.00 Pure hypercholesterolemia, unspecified; I10 Essential (primary) hypertension; D64.9 Anemia, unspecified; R79.89 Other specified abnormal findings of blood chemistry; H91.90 Unspecified hearing loss, unspecified ear; E66.9 Obesity, unspecified

== ENCOUNTER → 2024-03-13 09:27 | Outpatient (BNVA) | payer OTHER, SELFPAY | PROVIDERS: PCP Internal Medicine; Visit Provider Internal Medicine | DX: Z00.00 Encounter for general adult medical examination without abnormal findings (principal); E78.00 Pure hypercholesterolemia, unspecified; I10 Essential (primary) hypertension; D64.9 Anemia, unspecified; R94.6 Abnormal results of thyroid function studies; H91.90 Unspecified hearing loss, unspecified ear; E66.9 Obesity, unspecified; Z68.30 Body mass index [BMI] 30.0-30.9, adult; Z79.899 Other long term (current) drug therapy | CPT/HCPCS: 96127 ==

== ENCOUNTER 2024-03-20 08:15 | Outpatient (REF) | payer OTHER, SELFPAY ==
[2024-03-20 08:23] LABS: MANUAL DIFF FLAG NO
[2024-03-20 09:37] LABS: Basophils Absolute Auto 0.1 X10*3/uL (0.0-0.2); Basophils Percent Auto 0.9 % (0-2); Eosinophils Absolute Auto 0.2 X10*3/uL (0.0-0.4); Eosinophils Percent Auto 2.9 % (0-4); Hematocrit 43.6 % (42.0-52.0); Hemoglobin 14.2 g/dl (14.0-18.0); Imm Gran Abs Auto 0.02 X10*3/uL (0.00-0.03); Imm Gran Pct Auto 0.3 % (0.0-0.4); Lymphocytes Percent Auto 44.2 % (20-40); Mean Corpuscular HGB Conc 32.6 g/dl (31.0-36.0); Mean Corpuscular Hemoglobin 30.1 pg (27.0-33.0); Mean Corpuscular Volume 92.4 fL (80.0-98.0); Mean Platelet Volume 9.4 fL (9.4-12.4); Monocytes Absolute Auto 0.6 X10*3/uL (0.1-1.2); Monocytes Percent Auto 8.2 % (2-11); Neutrophils Percent Auto 43.5 % (45-73); Platelet Count 237 X10*3/uL (160-400); Red Blood Count 4.72 X10*6/uL (4.60-5.80); Red Cell Distribution Width 13.1 % (11.0-16.0); White Blood Count 6.8 X10*3/uL (4.8-10.8)
[2024-03-20 09:38] LABS: Appearance Urine Clear; Color Urine Yellow; Glucose Urine UA Negative (Negative); Leukocyte Esterase Urine Negative (Negative); Nitrite Urine Negative (Negative); Urine Blood Negative (Negative); Urine Ketones Negative (Negative); Urine Protein Negative (Neg-Trace)
[2024-03-20 10:16] LABS: Alanine Aminotransferase 18 U/L (0-40); Albumin Level 4.3 g/dL (3.5-5.0); Alkaline Phosphatase 71 U/L (39-117); Anion Gap 12 (12-20); Aspartate Amino Transferase 15 U/L (5-37); Bilirubin Total 0.7 mg/dL (0.0-1.0); Blood Urea Nitrogen 13 mg/dL (9-16); Calcium 9.8 mg/dL (8.4-10.2); Carbon Dioxide 28 mmol/L (22-29); Chloride 107 mmol/L (96-108); Cholesterol 204 mg/dL (<200); Estimated Glomerular Filt Rate > 60; Glucose Fasting 93 mg/dL (60-99); HDL Cholesterol 48 mg/dL (>40); LDL Cholesterol Calculated 131 mg/dL (<100); Potassium 3.8 mmol/L (3.3-5.1); Sodium 143 mmol/L (135-145); Total Protein 7.5 g/dL (6.5-8.0); Triglycerides 128 mg/dL (<150)
[2024-03-20 10:25] LABS: Prostate Specific Antigen 1.91 ng/mL (<0.05-4.0)
[2024-03-20 10:32] LABS: Free T4 (Free Thyroxine) 0.79 ng/dL (0.71-1.85); TSH reflex Free T4 5.14 uIU/mL (0.32-4.0); Thyroid Stimulating Hormone 5.14 uIU/mL (0.32-4.0); Vitamin D 25-OH Total 36.6 ng/mL (>30)
== END 2024-03-20 08:16 | disposition home or self-care (01) ==
LOC: HO.LAB 08:15
PROVIDERS: PCP Internal Medicine; Visit Provider Internal Medicine
DX: Z00.00 Encounter for general adult medical examination without abnormal findings (principal); E78.00 Pure hypercholesterolemia, unspecified; N40.0 Benign prostatic hyperplasia without lower urinary tract symptoms; R79.89 Other specified abnormal findings of blood chemistry; E55.9 Vitamin D deficiency, unspecified; I10 Essential (primary) hypertension; R30.0 Dysuria; Z12.5 Encounter for screening for malignant neoplasm of prostate
CPT/HCPCS: 36415; 80053; 80061; 81003; 82306; 84153; 84439; 84443; 85025

== ENCOUNTER → 2024-03-30 13:56 | Outpatient (BNVA) | payer OTHER, SELFPAY | PROVIDERS: PCP Internal Medicine ==

== ENCOUNTER 2024-09-04 07:59 | Outpatient (REF) | payer OTHER, SELFPAY ==
[2024-09-04 08:17] LABS: MANUAL DIFF FLAG NO
[2024-09-04 08:52] LABS: Basophils Absolute Auto 0.1 X10*3/uL (0.0-0.2); Basophils Percent Auto 0.8 % (0-2); Eosinophils Absolute Auto 0.2 X10*3/uL (0.0-0.4); Eosinophils Percent Auto 2.8 % (0-4); Hematocrit 43.3 % (42.0-52.0); Hemoglobin 14.4 g/dl (14.0-18.0); Imm Gran Abs Auto 0.01 X10*3/uL (0.00-0.03); Imm Gran Pct Auto 0.2 % (0.0-0.4); Lymphocytes Absolute Auto 2.5 X10*3/uL (1.2-4.9); Lymphocytes Percent Auto 41.6 % (20-40); Mean Corpuscular HGB Conc 33.3 g/dl (31.0-36.0); Mean Corpuscular Hemoglobin 30.5 pg (27.0-33.0); Mean Corpuscular Volume 91.7 fL (80.0-98.0); Mean Platelet Volume 9.3 fL (9.4-12.4); Monocytes Absolute Auto 0.5 X10*3/uL (0.1-1.2); Monocytes Percent Auto 7.6 % (2-11); Neutrophils Absolute Auto 2.9 x10*3/uL (2.0-8.3); Platelet Count 221 X10*3/uL (160-400); Red Blood Count 4.72 X10*6/uL (4.60-5.80); White Blood Count 6.1 X10*3/uL (4.8-10.8)
[2024-09-04 08:59] LABS: Appearance Urine Clear; Color Urine Yellow; Glucose Urine UA Negative (Negative); Leukocyte Esterase Urine Negative (Negative); Nitrite Urine Negative (Negative); PH 5.5 (5.0-9.0); Specific Gravity - Urine 1.015 (1.005-1.025); Urine Blood Negative (Negative); Urine Ketones Negative (Negative); Urine Protein Negative (Neg-Trace)
[2024-09-04 09:58] LABS: Alanine Aminotransferase 29 U/L (0-40); Albumin Level 4.1 g/dL (3.5-5.0); Alkaline Phosphatase 66 U/L (39-117); Anion Gap 9 (12-20); Aspartate Amino Transferase 18 U/L (5-37); Bilirubin Total 0.6 mg/dL (0.0-1.0); Blood Urea Nitrogen 14 mg/dL (9-16); Calcium 9.2 mg/dL (8.4-10.2); Carbon Dioxide 26 mmol/L (22-29); Chloride 112 mmol/L (96-108); Cholesterol 159 mg/dL (<200); Estimated Glomerular Filt Rate > 60; Glucose Fasting 92 mg/dL (60-99); HDL Cholesterol 47 mg/dL (>40); LDL Cholesterol Calculated 95 mg/dL (<100); Potassium 4.7 mmol/L (3.3-5.1); Sodium 142 mmol/L (135-145); Total Protein 7.4 g/dL (6.5-8.0); Triglycerides 89 mg/dL (<150)
== END 2024-09-04 08:00 | disposition home or self-care (01) ==
LOC: HO.LAB 07:59
PROVIDERS: PCP Internal Medicine; Visit Provider Internal Medicine
DX: Z00.00 Encounter for general adult medical examination without abnormal findings (principal); R30.0 Dysuria; E78.00 Pure hypercholesterolemia, unspecified; D64.9 Anemia, unspecified
CPT/HCPCS: 36415; 80053; 80061; 81003; 84443; 85025

== ENCOUNTER 2024-09-11 08:52 | Outpatient (AMB) | payer OTHER, SELFPAY ==
[2024-09-11 08:58] VITALS: BP 128/76; PULSE 70; O2SAT 98; BMI 29.1
--- NOTE | 2024-09-11 08:58 | A.OFFPC_ITS ---
Vital Signs 09/11/24 08:58 Height 5 ft 6 in Weight 180 lb 8 oz BMI 29.1 BP 128/76 Blood Pressure Location Lt brachial Position Sitting Pulse 70 Pulse Source Pulse Oximeter Pulse Oximetry (%) 98 Oxygen Delivery Method Room Air Intake Visit Reasons: 6 month f/u- see comments Pricing Lead Required: No Accompanied by: Self / Same As Patient Allergies No Known Allergies Allergy (Verified 09/11/24 09:20) Medication List - Last Reconciled 09/11/24 by Dawson Law MD simvastatin 20 mg PO DAILY Tobacco use date assessed: 09/11/24 Fall risk assessment: No Falls in past year Last assessed Fall Risk: 09/11/24 Dental Screening Dental Screen Date: 09/11/24 Did you have a dental visit in the last 12 months?: No Did you have a dental problem in the last 6 months where you did not have access to dental care?: No Was dental information given to patient?: Patient has dentist HPI 6 month f/u- see comments HPI Details Patient comes in today for his follow up visit States that he feels okay He denies any headaches or dizziness Denies any chest pains, no SOB No nausea/vomiting, no abdominal pain No change in bowel habits noted He had his follow up labs done last week - to discuss his results [facility] Medical History (Updated 09/11/24 @ 09:37 by Dawson Law MD) Overweight (BMI 25.0-29.9) Benign essential hypertension Pure hypercholesterolemia Seasonal allergies Surgical History Hx of colonoscopy Family History Mother CHF (congestive heart failure) Father Brain aneurysm Other Mental health problem Social History Housing: House Alcohol intake: former Patient Tobacco Use Status: Never used Tobacco e-Cigarette/Vaping Use: Never Used Second Hand Smoke Exposure: Yes service: No Current occupational status: employed Cognitive needs: No Hearing needs: No Vision needs: Yes Questionnaire PHQ-9 Over the last 2 weeks, how often have you been bothered by any of the following problems? 1. Little interest or pleasure in doing things: not at all 2. Feeling down, depressed, or hopeless: not at all 3. Trouble falling or staying asleep, or sleeping too much: not at all 4. Feeling tired or having little energy: not at all 5. Poor appetite or overeating: not at all 6. Feeling bad about yourself - or that you are a failure or have let yourself or your family down: not at all 7. Trouble concentrating on things, such as reading the newspaper or watching television: not at all 8. Moving or speaking so slowly that other people could have noticed. Or the opposite - being so fidgety or restless that you have been moving around a lot more than usual: not at all 9. Thoughts that you would be better off or of hurting yourself in some way: not at all Total score: 0 Depression Screening Interpretation: Negative Depression Screening Done: Yes 19931 - PHQ-9 Billing: Yes Source: Developed by Drs. Dougie Pike, Ronda Jung, Zay Theodore and colleagues, with an educational dee from [employer]. Thrive Questionnaire Date Thrive assessed: 09/11/24 I am a: Patient What is your living situation today?: I have a steady place to live Within the past 12 months, did the food you bought not last and you didn't have the money to get more?: Never true Within the past 12 months, did you worry whether your food would run out before you got money to buy more?: Never true Do you have trouble paying for medicines?: No Do you have trouble getting transportation to medical appointments?: No Do you have trouble paying your heating and electricity bill?: No Do you have trouble taking care of your child, family member or friend?: No Do you have trouble with day-to-day activities such as bathing, preparing meals, shopping, managing finances, etc.?: No Are you currently unemployed and looking for a job?: No Are you interested in more education?: No Please select the resources that you would like help with: None Currently or been in a relationship where the following occur: I choose not to answer THRIVE Score: 0 AUDIT C Alcohol Use Questionnaire (AUDIT-C) 1. How often do you have a drink containing alcohol?: Monthly or less 2. How many drinks containing alcohol do you have on a typical day when you are drinking?: 1 or 2 3. How often do you have six or more drinks on one occasion?: Never Total Score: 1 Score Reviewed/Action Taken: Yes BRITTNEY-7 AMB Questionnaire BRITTNEY-7 Date BRITTNEY - 7 assessed: 09/11/24 Source: Developed by Drs. Dougie Pike, Ronda Jung, Zay Theodore and colleagues, with an educational dee from [employer]. Review of Systems Const Denies chills, Denies fatigue, Denies fever(s) and Denies headache(s) ENT Denies dysphagia, Denies dizziness, Denies otalgia, Denies headache(s), Denies neck pain, Denies odynophagia and Denies sore throat Card Denies chest pain, Denies palpitations and Denies dyspnea Resp Denies chest congestion, Denies cough and Denies dyspnea GI Denies abdominal pain, Denies constipation, Denies dysphagia, Denies heartburn, Denies diarrhea, Denies nausea, Denies odynophagia and Denies vomiting Denies difficulty urinating, Denies dysuria, Denies nocturia and Denies urinary frequency Musc Denies back pain and Denies neck pain Skin/Breast Details: (+) raised hyperpigmented lesion on the left cheek, just in front of the left ear Denies rash Neuro Denies dizziness and Denies headache(s) Endo Denies fatigue and Denies palpitations Physical exam (Primary Care) Vital Signs: Last Vital Signs Pulse 70 09/11/24 08:58 BP 128/76 09/11/24 08:58 Pulse Ox 98 09/11/24 08:58 Oxygen Delivery Method Room Air 09/11/24 08:58 BMI result Body Mass Index 29.1 Tobacco/Smoking Status: Tobacco use Status Tobacco use date assessed 09/11/24 09/11/24 09:02 Patient Tobacco Use Status Never used Tobacco 09/11/24 09:02 e-Cigarette/Vaping Use Never Used 09/11/24 09:02 PHQ-9: PHQ-9 Score PHQ-9: Total score 0 09/11/24 09:02 Depression Screening Interpretation: Negative Thrive Assessment: Date of Thrive Assessment Date Thrive assessed 09/11/24 09/11/24 09:02 Currently or been in a relationship where the following occur: I choose not to answer Const General: no acute distress and alert HENMT Ears: TM's normal bilaterally and EAC's normal Throat: Yes posterior oropharynx normal and Yes tonsils normal (no TP congestion) Neck Neck: Yes supple and No lymphadenopathy Thyroid: Thyroid normal Resp Auscultation: clear to auscultation bilaterally, no rales and no wheezes Cardio Rate: regular rate Rhythm: regular rhythm Heart sounds: no murmurs GI Palpation (GI): Soft to palpation and nontender Auscultation: normal bowel sounds General: Yes no CVA tenderness Back/Spine/Pelvis Back: no CVA tenderness Thoracic/Lumbar Spine: No lumbar spinal tenderness Skin Lesions: lesion noted ((+) raised keratotic lesion on the left preauricular area) Rashes: no rashes Extrem General: Yes no clubbing, cyanosis or edema Results Reviewed Results Reviewed: Laboratory Tests 09/04/24 08:15 WBC 6.1 Hgb 14.4 Hct 43.3 Plt Count 221 Sodium 142 Potassium 4.7 D Creatinine 0.86 Estimated GFR > 60 Fasting Glucose 92 Calcium 9.2 D AST 18 ALT 29 Triglycerides 89 Cholesterol 159 LDL Cholesterol, Calc 95 HDL Cholesterol 47 TSH 3.10 Ur Specific [place] 1.015 Urine Protein Negative Urine Glucose (UA) Negative Urine Blood Negative Urine Nitrite Negative Ur Leukocyte Esterase Negative Coding Level of Care Code Est Pt Level 4 (57507) Diagnoses Pure hypercholesterolemia E78.00 Benign essential hypertension I10 Elevated TSH R79.89 Mild anemia D64.9 Seborrheic keratosis L82.1 Seasonal allergies J30.2 Overweight (BMI 25.0-29.9) E66.3 Colon cancer screening Z12.11 Additional Codes PHQ-9 - 62762 - PHQ-9 Billing: Yes ([id number]) Assessment & Plan Assessment & Plan (1) Pure hypercholesterolemia: Code(s): E78.00 - Pure hypercholesterolemia, unspecified Category: Medical Plan: Results of his labs done last week reviewed and discussed with patient - he is advised that his cholesterol numbers have improved significantly from previous Reinforced low cholesterol diet Continue Simvastatin 20 mg QD Will recheck his labs and fasting lipids in 6 months for follow up (2) Benign essential hypertension: Code(s): I10 - Essential (primary) hypertension Category: Medical Plan: Reinforced low sodium diet Patient's blood pressure appears to have improved significantly with his weight loss States that he has also improved his diet significantly and has stopped eating a lot of the junk foods that he used to enjoy eating He is reminded to continue monitoring his blood pressure regularly (3) Elevated TSH: Code(s): R79.89 - Other specified abnormal findings of blood chemistry Category: Medical Plan: Patient's TSH level has normalized on his recent labs He is clinically euthyroid Will just continue monitoring his labs routinely at this time (4) Mild anemia: Code(s): D64.9 - Anemia, unspecified Category: Medical Plan: Patient's H/H have also returned to normal on his recent labs Will continue to monitor his CBC routinely (5) Seborrheic keratosis: Code(s): L82.1 - Other seborrheic keratosis Category: Medical Plan: Will refer him to dermatology for further evaluation of the raised keratotic lesion on his left preauricular area - have advised patient that this is most likely a benign seborrheic keratotic lesion (6) Seasonal allergies: Code(s): J30.2 - Other seasonal allergic rhinitis Category: Medical Plan: Patient states that he has started taking OTC Loratadine 10 mg QD again with spring around the corner as he has started experiencing symptoms of spring allergies recently (7) Overweight (BMI 25.0-29.9): Code(s): E66.3 - Overweight Category: Medical Plan: Reinforced diet/exercise as tolerated/lose weight - he has managed to lose at least 6 to 7 pounds since his last visit by improving his diet States that he also plans to start walking again as soon as the weather improves (8) Colon cancer screening: Code(s): Z12.11 - Encounter for screening for malignant neoplasm of colon Category: Medical Plan: He had his last colonoscopy with Dr. Kim in 10/2014 and is now due for repeat colonoscopy Will refer him back to Dr. Kim Plan To return in 6 months for his next annual physical examination Orders: Orders Complete Blood Count Auto Diff 6 Months D64.9 - Anemia, unspecified, Z00.00 - Encounter for general adult medical examination without abnormal findings Vitamin D 25-OH Total 6 Months E55.9 - Vitamin D deficiency, unspecified, Z00.00 - Encounter for general adult medical examination without abnormal findings Comprehensive [place]. Panel Fast 6 Months E78.00 - Pure hypercholesterolemia, unspecified, Z00.00 - Encounter for general adult medical examination without abnormal findings Lipid Panel 6 Months E78.00 - Pure hypercholesterolemia, unspecified, Z00.00 - Encounter for general adult medical examination without abnormal findings TSH reflex Free T4 6 Months E78.00 - Pure hypercholesterolemia, unspecified, Z00.00 - Encounter for general adult medical examination without abnormal findings UA CC w/rflx Micro + Cult 6 Months R30.0 - Dysuria, Z00.00 - Encounter for general adult medical examination without abnormal findings Prostate Specific Antigen 6 Months N40.0 - Benign prostatic hyperplasia without lower urinary tract symptoms, Z00.00 - Encounter for general adult medical examination without abnormal findings Referrals Gastroenterology Referral Z12.11 - Encounter for screening for malignant neoplasm of colon Dermatology Referral L82.1 - Other seborrheic keratosis
== END 2024-09-11 09:31 | disposition home or self-care (01) ==
LOC: HO.HMCH 08:53
PROVIDERS: PCP Internal Medicine; Visit Provider Internal Medicine
DX: E78.00 Pure hypercholesterolemia, unspecified (principal); I10 Essential (primary) hypertension; R79.89 Other specified abnormal findings of blood chemistry; D64.9 Anemia, unspecified; L82.1 Other seborrheic keratosis; J30.2 Other seasonal allergic rhinitis; E66.3 Overweight; Z12.11 Encounter for screening for malignant neoplasm of colon

== ENCOUNTER → 2024-09-11 08:52 | Outpatient (BNVA) | payer OTHER, SELFPAY | PROVIDERS: PCP Internal Medicine; Visit Provider Internal Medicine | DX: E78.00 Pure hypercholesterolemia, unspecified (principal); I10 Essential (primary) hypertension; R94.6 Abnormal results of thyroid function studies; D64.9 Anemia, unspecified; L82.1 Other seborrheic keratosis; J30.2 Other seasonal allergic rhinitis; E66.3 Overweight; Z68.29 Body mass index [BMI] 29.0-29.9, adult; Z79.899 Other long term (current) drug therapy | CPT/HCPCS: 96127 ==

== ENCOUNTER 2025-03-19 09:21 | Outpatient (AMB) | payer OTHER, SELFPAY ==
[2025-03-19 09:24] VITALS: BP 152/96; PULSE 64; O2SAT 97; BMI 30.4
--- NOTE | 2025-03-19 09:24 | MHC.PC.OV ---
Vital Signs 03/19/25 09:24 03/19/25 09:31 03/19/25 09:59 Height 5 ft 6 in Weight 188 lb 8 oz BMI 30.4 BP 152/96 H 150/92 H 140/88 H Blood Pressure Location Lt brachial Rt brachial Lt brachial Position Sitting Sitting Sitting Pulse 64 Pulse Source Pulse Oximeter Pulse Oximetry (%) 97 Oxygen Delivery Method Room Air Intake Visit Reasons: Annual Exam Multifocal Button Generator Required: No Accompanied by: Self / Same As Patient Allergies No Known Allergies Allergy (Verified 03/19/25 09:42) Medication List - Last Reconciled 03/19/25 by Dawson Law MD simvastatin 20 mg PO DAILY Tobacco use date assessed: 03/19/25 Fall risk assessment: No Falls in past year Last assessed Fall Risk: 03/19/25 Dental Screening Dental Screen Date: 03/19/25 Did you have a dental visit in the last 12 months?: Yes Did you have a dental problem in the last 6 months where you did not have access to dental care?: No Was dental information given to patient?: Patient has dentist HPI Annual Exam HPI Details Patient comes in today for his annual physical examination States that he feels okay He denies any headaches or dizziness Denies any chest pains, no SOB No nausea/vomiting, no abdominal pain No change in bowel habits noted He denies any acute urinary symptoms Adds that he his right second toe is deformed and bent inwards - states that he's had this for a while now and his is insisting that he mentions this to us and have it checked out States that his toe does not really hurt except for he has to wear his steel-toed boots at work for a long time He was not able to get his follow up labs done prior to his appointment today He had his screening colonoscopy last done with Dr. Kim in October 2014 and is due for repeat colonoscopy this year - states that Dr. Kim's office has already reached out to him about this but he just has not gotten back to them yet to schedule his appointment [facility] Medical History Overweight (BMI 25.0-29.9) Benign essential hypertension Pure hypercholesterolemia Seasonal allergies Surgical History Hx of colonoscopy Family History Mother CHF (congestive heart failure) Father Brain aneurysm Other Mental health problem Social History Housing: House Alcohol intake: former Patient Tobacco Use Status: Never used Tobacco e-Cigarette/Vaping Use: Never Used Second Hand Smoke Exposure: Yes service: No Current occupational status: employed Cognitive needs: No Hearing needs: No Vision needs: Yes Questionnaire PHQ-9 Over the last 2 weeks, how often have you been bothered by any of the following problems? 1. Little interest or pleasure in doing things: not at all 2. Feeling down, depressed, or hopeless: not at all 3. Trouble falling or staying asleep, or sleeping too much: not at all 4. Feeling tired or having little energy: not at all 5. Poor appetite or overeating: not at all 6. Feeling bad about yourself - or that you are a failure or have let yourself or your family down: not at all 7. Trouble concentrating on things, such as reading the newspaper or watching television: not at all 8. Moving or speaking so slowly that other people could have noticed. Or the opposite - being so fidgety or restless that you have been moving around a lot more than usual: not at all 9. Thoughts that you would be better off or of hurting yourself in some way: not at all Total score: 0 Depression Screening Interpretation: Negative Depression Screening Done: Yes 56820 - PHQ-9 Billing: Yes Source: Developed by Drs. Dougie Pike, Ronda Jung, Zay Theodore and colleagues, with an educational dee from [employer]. Thrive Questionnaire Date Thrive assessed: 03/19/25 I am a: Patient What is your living situation today?: I have a steady place to live Within the past 12 months, did the food you bought not last and you didn't have the money to get more?: Never true Within the past 12 months, did you worry whether your food would run out before you got money to buy more?: Never true Do you have trouble paying for medicines?: No Do you have trouble getting transportation to medical appointments?: No Do you have trouble paying your heating and electricity bill?: No Do you have trouble taking care of your child, family member or friend?: No Do you have trouble with day-to-day activities such as bathing, preparing meals, shopping, managing finances, etc.?: No Are you currently unemployed and looking for a job?: No Are you interested in more education?: No Please select the resources that you would like help with: None Currently or been in a relationship where the following occur: I choose not to answer THRIVE Score: 0 AUDIT C Alcohol Use Questionnaire (AUDIT-C) 1. How often do you have a drink containing alcohol?: Never 3. How often do you have six or more drinks on one occasion?: Never Total Score: 0 Score Reviewed/Action Taken: Yes BRITTNEY-7 AMB Questionnaire BRITTNEY-7 Date BRITTNEY - 7 assessed: 09/11/24 Feeling nervous, anxious, or on edge: 0 = Not at all Not being able to stop or control worryin = Not at all Worrying too much about different things: 0 = Not at all Trouble relaxin = Not at all Being so restless that it is hard to sit still: 0 = Not at all Becoming easily annoyed or irritable: 0 = Not at all Feeling afraid as if something awful might happen: 0 = Not at all Total BRITTNEY-7 score (0-4 normal; 5-9 mild; 10-14 moderate; 15-21 severe): 0 Source: Developed by Drs. Dougie Pike, Ronda Jung, Zay Theodore and colleagues, with an educational dee from [employer]. Review of Systems Const Denies chills, Denies fatigue, Denies fever(s), Denies headache(s), Denies malaise and Denies weakness Eyes Denies blurry vision, Denies change in vision, Denies irritation and Denies itchy eyes ENT Denies dysphagia, Denies dizziness, Denies otalgia, Denies headache(s), Denies nasal congestion, Denies neck pain, Denies odynophagia and Denies sore throat Card Denies chest pain, Denies rapid heart rate, Denies irregular heart rhythm, Denies palpitations and Denies dyspnea Resp Denies chest congestion, Denies cough, Denies dyspnea and Denies wheezing GI Denies abdominal pain, Denies bloating, Denies constipation, Denies dysphagia, Denies heartburn, Denies diarrhea, Denies nausea, Denies odynophagia and Denies vomiting Denies hematuria, Denies difficulty urinating, Denies dysuria, Denies urinary frequency and Denies urinary urgency Musc Details: (+) deformed right second toe - toe is bent inwards Denies back pain, Denies arthralgias, Denies joint swelling, Denies muscle weakness and Denies neck pain Skin/Breast Denies change in pigmentation, Denies lesions, Denies rash and Denies unusual bruising Neuro Denies dizziness, Denies headache(s), Denies paresthesias and Denies weakness Endo Denies fatigue and Denies palpitations Aller/Immun Denies itchy eyes and Denies wheezing Physical exam (Primary Care) Vital Signs: Last Vital Signs Pulse 64 03/19/25 09:24 BP 140/88 H 03/19/25 09:59 Pulse Ox 97 03/19/25 09:24 Oxygen Delivery Method Room Air 03/19/25 09:24 BMI result Body Mass Index 30.4 Tobacco/Smoking Status: Tobacco use Status Tobacco use date assessed 03/19/25 03/19/25 09:32 Patient Tobacco Use Status Never used Tobacco 03/19/25 09:32 e-Cigarette/Vaping Use Never Used 03/19/25 09:32 PHQ-9: PHQ-9 Score PHQ-9: Total score 0 03/19/25 09:54 Depression Screening Interpretation: Negative Thrive Assessment: Date of Thrive Assessment Date Thrive assessed 03/19/25 03/19/25 09:54 Currently or been in a relationship where the following occur: I choose not to answer Const General: no acute distress, alert and awake Orientation/consciousness: patient oriented x3 HENMT Head: Yes normocephalic and Yes atraumatic Ears: external ears normal, TM's normal bilaterally and EAC's normal General nose exam: No nasal discharge present Face and sinus: Yes normal facial exam and Yes sinuses nontender Teeth and gingiva: dentition normal Throat: Yes posterior oropharynx normal and Yes tonsils normal (no TP congestion) Eyes Eyelids: Yes eyelids normal Conjunctivae: conjunctivae normal Pupils: Equal, round and reactive pupils present EOM: EOMs intact bilaterally Neck Neck: Yes no lymphadenopathy and Yes supple Thyroid: Thyroid normal Resp Auscultation: clear to auscultation bilaterally, no rales and no wheezes Cardio Rate: regular rate Rhythm: regular rhythm Heart sounds: no murmurs GI Palpation (GI): Soft to palpation, nontender and No hepatosplenomegaly present Auscultation: normal bowel sounds General: Yes no CVA tenderness Back/Spine/Pelvis Back: no CVA tenderness Thoracic/Lumbar Spine: thoracic and lumbar spine normal to inspection Skin Lesions: no lesions Rashes: no rashes Neuro General: patient oriented x3, moves all extremities, no focal motor deficits and CN's II-XI intact bilaterally Cranial nerves: Yes Equal, round and reactive pupils present Cognition (Neuro): normal cognition Gait exam (Neuro): Normal gait present Extrem General: Yes no clubbing, cyanosis or edema Right lower extremity: foot Details: abnormal to inspection Details: a deformity Location: of the 2nd digit (toe is deformed and bent inwards) Coding Level of Care Code Est Pt Prev Care >65y(18326) Diagnoses Annual physical exam Z00.00 Pure hypercholesterolemia E78.00 Benign essential hypertension I10 Elevated TSH R79.89 Mild anemia D64.9 Hammertoe of second toe of left foot M20.42 Seasonal allergies J30.2 Obesity (BMI 30-39.9) E66.9 Additional Codes PHQ-9 - 35225 - PHQ-9 Billing: Yes ([id number]) Assessment & Plan Assessment & Plan (1) Annual physical exam: Code(s): Z00.00 - Encounter for general adult medical examination without abnormal findings Category: Medical Plan: Patient was not able to get his follow up labs done prior to his appointment today and is advised to try to get these done DEVON to complete his physical exam today He had his screening colonoscopy last done with Dr. Kim in October 2014 and is due for repeat colonoscopy this year States that Dr. Kim's office has already reached out to him about this but he has not been able to call them back to schedule his appointment yet - is advised to try calling them back to get this scheduled DEVON (2) Pure hypercholesterolemia: Code(s): E78.00 - Pure hypercholesterolemia, unspecified Category: Medical Plan: Patient is advised to get his follow up labs done DEVON so we can see how his cholesterol levels are doing at present Reinforced low cholesterol diet Continue Simvastatin 20 mg QD Will recheck his labs and fasting lipids in 6 months for follow up (3) Benign essential hypertension: Code(s): I10 - Essential (primary) hypertension Category: Medical Plan: Reinforced low sodium diet Patient's blood pressure appears to have improved significantly with his weight loss previously but it is now high again He also appears to have gained most of the weight he previously lost back and is advised to work on his weight and blood pressure again if he does not wish to have to take more medications to help control his blood pressure He is again reminded to continue monitoring his blood pressure regularly (4) Elevated TSH: Code(s): R79.89 - Other specified abnormal findings of blood chemistry Category: Medical Plan: Patient's TSH level has normalized on his most recent labs done earlier this year and he is clinically euthyroid at present Will just continue monitoring his labs routinely at this time (5) Mild anemia: Code(s): D64.9 - Anemia, unspecified Category: Medical Plan: Patient's H/H have also returned to normal on his previous labs Will continue to monitor his CBC routinely (6) Hammertoe of second toe of left foot: Code(s): M20.42 - Other hammer toe(s) (acquired), left foot Category: Medical Plan: Will send him for x-rays of the right foot for further evaluation Will also refer him to podiatry to have this issue addressed properly (7) Seasonal allergies: Code(s): J30.2 - Other seasonal allergic rhinitis Category: Medical Plan: Continue OTC Loratadine 10 mg QD PRN (8) Obesity (BMI 30-39.9): Code(s): E66.9 - Obesity, unspecified Category: Medical Plan: Reinforced diet/exercise as tolerated/lose weight - he appears to have gained most of the weight he previously lost back since his last visit Plan Follow up in 6 months Orders: Orders XR foot RT min 3V Today M20.42 - Other hammer toe(s) (acquired), left foot, M20.60 - Acquired deformities of toe(s), unspecified, unspecified foot Lipid Panel 6 Months E78.00 - Pure hypercholesterolemia, unspecified Comprehensive [place]. Panel Fast 6 Months E78.00 - Pure hypercholesterolemia, unspecified Referrals Podiatry Referral M20.42 - Other hammer toe(s) (acquired), left foot
[2025-03-19 09:31] VITALS: BP 150/92
[2025-03-19 09:59] VITALS: BP 140/88
== END 2025-03-19 10:07 | disposition home or self-care (01) ==
LOC: HO.HMCH 09:22
PROVIDERS: PCP Internal Medicine; Visit Provider Internal Medicine
DX: Z00.00 Encounter for general adult medical examination without abnormal findings (principal); E78.00 Pure hypercholesterolemia, unspecified; Z68.30 Body mass index [BMI] 30.0-30.9, adult; E66.9 Obesity, unspecified; I10 Essential (primary) hypertension; R79.89 Other specified abnormal findings of blood chemistry; M20.42 Other hammer toe(s) (acquired), left foot; D64.9 Anemia, unspecified; J30.2 Other seasonal allergic rhinitis

== ENCOUNTER → 2025-03-19 09:21 | Outpatient (BNVA) | payer OTHER, SELFPAY | PROVIDERS: PCP Internal Medicine; Visit Provider Internal Medicine | DX: Z00.00 Encounter for general adult medical examination without abnormal findings (principal); E78.00 Pure hypercholesterolemia, unspecified; I10 Essential (primary) hypertension; R79.89 Other specified abnormal findings of blood chemistry; D64.9 Anemia, unspecified; J30.2 Other seasonal allergic rhinitis; M20.42 Other hammer toe(s) (acquired), left foot; E66.9 Obesity, unspecified; Z68.30 Body mass index [BMI] 30.0-30.9, adult | CPT/HCPCS: 96127 ==

== ENCOUNTER 2025-03-28 13:03 | Outpatient (REF) | payer OTHER, SELFPAY ==
--- NOTE | ~2025-03-28 | XR_ITS ---
EXAMINATION: XR FOOT, RIGHT CLINICAL INFORMATION: M20.60 - Acquired deformities of toe(s), unspecified, unspecified foot COMPARISON: None available. TECHNIQUE: AP, lateral, and oblique views of the right foot. FINDINGS: There is medial deviation fracture deformity of the second digit, overlapping the great toe. This obscures bony detail of the middle and distal phalanges of the second digit. There is severe asymmetric joint space narrowing of the first MTP joint with subchondral sclerosis and cystic change. There are large marginal osteophytes along the lateral aspect. There is subtle degenerative changes involving the sesamoids and first metatarsal head with degenerative cystic and osteophytes. The lateral sesamoid is bipartite. There is wedge-shaped irregularity in the contour of the lateral neck of the fifth metatarsal, likely chronic posttraumatic. There is a marginal ossified involving the medial first metatarsal head and base of the second, third, and fourth proximal phalanges.. XR/XR foot RT min 3V IMPRESSION: Hammertoe deformity of the second digit. There are severe degenerative changes involving the first MTP joint consistent with osteoarthritis. There are mild changes of osteoarthritis involving the second, third, and fourth MTP joints. Chronic deformity of the fifth metatarsal neck is probably posttraumatic Electronically signed by: Kirk Turcios MD 03/28/2025 01:41 PM EDT
== END 2025-03-28 13:04 | disposition home or self-care (01) ==
LOC: HO.XRAY 13:03
PROVIDERS: PCP Internal Medicine; Visit Provider Internal Medicine
DX: M20.61 Acquired deformities of toe(s), unspecified, right foot (principal); M20.41 Other hammer toe(s) (acquired), right foot
CPT/HCPCS: 73630

== ENCOUNTER → 2025-03-28 13:07 | Outpatient (BNV) | payer OTHER, SELFPAY | PROVIDERS: PCP Internal Medicine; Visit Provider Radiology Diagnostic Radiology | DX: M20.41 Other hammer toe(s) (acquired), right foot (principal); M19.071 Primary osteoarthritis, right ankle and foot; M21.6X1 Other acquired deformities of right foot | CPT/HCPCS: 73630 ==

== ENCOUNTER 2025-04-02 10:50 | Outpatient (AMB) | payer OTHER, SELFPAY ==
[2025-04-02 10:59] VITALS: BMI 29.9
--- NOTE | 2025-04-02 10:59 | A.OFFVIS_ITS ---
Vital Signs 04/02/25 10:59 Height 5 ft 6 in Weight 185 lb BMI 29.9 Intake Visit Reasons: hammer toe, left foot Intake Note: Isaac is a 69 year old male who presents today as a new patient for an evaluation of is hammer toes of his right foot. Pt reports this has been going on for over 10 years and he has not had any previous treatment. Right foot X-ray IMPRESSION: Hammertoe deformity of the second digit. There are severe degenerative changes involving the first MTP joint consistent with osteoarthritis. There are mild changes of osteoarthritis involving the second, third, and fourth MTP joints. Chronic deformity of the fifth metatarsal neck is probably posttraumatic Allergies No Known Allergies Allergy (Verified 04/02/25 11:00) HPI Comments Details: The patient is a 69-year-old male with a past medical history as seen below presenting with right foot pain. He states he experiences pain to the right foot due to a hammertoe of the 2nd digit. Patient states pain to the right foot is exacerbated by wearing steel-toed boots at work. The pain is localized to the area where the steel toe rubs against the 2nd digit, and has been present since starting a new job that requires prolonged standing on cement floors. The patient has been wearing sneakers at work to alleviate the discomfort. The patient has a history of hammertoe, which has been present for over 10 years but has worsened with the new job due to change in shoe gear. The patient reports a callus formation at the pressure point, which he has managed successfully with topical treatments. The patient is aware of the risk of ulcer formation due to the callus rigid hammertoe of the 2nd digit and has been advised to monitor it closely. He denies any numbness or tingling in the foot. Patient states due to compensation to avoid pain to the 2nd toe he has noticed an increase in disco mfort to the plantar aspect of the right heel. Patient states he has been trying to bear weight mostly to his heel to avoid pain to the toe. He denies any recent pedal injuries. He denies any other pedal concerns. [facility] Medical History (Updated 04/02/25 @ 12:37 by Bess Galvez DPM) Right foot pain Arthritis of first metatarsophalangeal (MTP) joint of right foot Other specified epidermal thickening Hammer toe of second toe of right foot Overweight (BMI 25.0-29.9) Benign essential hypertension Pure hypercholesterolemia Seasonal allergies Surgical History Hx of colonoscopy Family History Mother CHF (congestive heart failure) Father Brain aneurysm Other Mental health problem Social History Housing: House Alcohol intake: former Patient Tobacco Use Status: Never used Tobacco e-Cigarette/Vaping Use: Never Used Second Hand Smoke Exposure: Yes service: No Current occupational status: employed Cognitive needs: No Hearing needs: No Vision needs: Yes Review of Systems Const Details: - Musculoskeletal: Reports hammertoe to the 2nd digit with associated pain. Physical Exam Vital Signs: BMI result Body Mass Index 29.9 Extrem Other: Right lower extremity focused physical exam: Derm: Pre hyperkeratotic lesions noted to the dorsal aspect of the 2nd digit at the level of the IPJ and plantar aspect of the 2nd and 3rd metatarsal heads. Skin supple and turgor within normal limits. No open lesions abrasions or wounds noted. No ecchymosis or discoloration noted. No clinical signs of infection. Vascular: DP/PT pulses palpable. Capillary refill time less than 3 seconds. Temperature gradient warm to warm. Pedal hair diminished. Varicosities noted. Neuro: Protective sensation is grossly intact. MSK: Mild pain on palpation to the 2nd toe and to the plantar aspect of the heel. Rigid hammertoe noted to the 2nd digit with overlapping of the 2nd digit above the 1st digit. No crepitus noted. Range of motion of the forefoot within normal limits except for the 2nd digit. No fluctuance noted. Pes planus foot type noted. Mildly antalgic gait unassisted. No pain on palpation to the 1st MPJ. Results Reviewed Results Reviewed: Podiatry read of Right foot x-rays (03/28/25): Hammertoe deformity noted to the 2nd digit with medial deviation at the level of the MPJ. Overlapping of the 2nd digit over the 1st digit noted. Significant decrease in joint space noted to the 1st MPJ. Slightly Reduced joint space to the remaining MPJs. Minimal calcaneal spur noted to the plantar aspect of the calcaneus. Mild hammertoe deformities noted to 3rd through 5th digits. Right foot x-rays (03/28/25): FINDINGS: There is medial deviation fracture deformity of the second digit, overlapping the great toe. This obscures bony detail of the middle and distal phalanges of the second digit. There is severe asymmetric joint space narrowing of the first MTP joint with subchondral sclerosis and cystic change. There are large marginal osteophytes along the lateral aspect. There is subtle degenerative changes involving the sesamoids and first metatarsal head with degenerative cystic and osteophytes. The lateral sesamoid is bipartite. There is wedge-shaped irregularity in the contour of the lateral neck of the fifth metatarsal, likely chronic posttraumatic. There is a marginal ossified involving the medial first metatarsal head and base of the second, third, and fourth proximal phalanges.. IMPRESSION: Hammertoe deformity of the second digit. There are severe degenerative changes involving the first MTP joint consistent with osteoarthritis. There are mild changes of osteoarthritis involving the second, third, and fourth MTP joints. Chronic deformity of the fifth metatarsal neck is probably posttraumatic Assessment & Plan Assessment & Plan (1) Hammer toe of second toe of right foot: Code(s): M20.41 - Other hammer toe(s) (acquired), right foot Category: Medical (2) Other specified epidermal thickening: Code(s): L85.8 - Other specified epidermal thickening Category: Medical (3) Arthritis of first metatarsophalangeal (MTP) joint of right foot: Code(s): M19.071 - Primary osteoarthritis, right ankle and foot Category: Medical (4) Right foot pain: Code(s): M79.671 - Pain in right foot Category: Medical Plan Patient was informed and verbally consented to the use of an ambient scribe for clinic note documentation during this visit. I discussed with the patient the presence of a hammertoe and arthritis, and the associated risks of callus and ulcer formation. We reviewed conservative treatment options, including toe separators and OTC orthotics, and the potential need for surgical intervention if symptoms persist. I provided a note for work to allow the patient to wear sneakers instead of steel-toed boots. We also discussed the importance of monitoring the callus to prevent ulcer formation. - Provided a note for work to allow wearing sneakers instead of steel-toed boots to alleviate foot pain. - Recommend use of toe separators to prevent further bone shift and alleviate pressure points. - Suggest [id number] orthotics for additional support if pain persists. - Advise monitoring of callus to prevent ulcer formation. - Consider surgical intervention if conservative measures fail to relieve symptoms. - Patient may take Ibuprofen or Tylenol for pain prn. Patient is to follow up in 1 month for re-evaluation of symptoms. Coding Level of Care Code New Pt Level 4 (07762) Diagnoses Hammer toe of second toe of right foot M20.41 Other specified epidermal thickening L85.8 Arthritis of first metatarsophalangeal (MTP) joint of right foot M19.071 Right foot pain M79.671 Time Spent (min) 52
== END 2025-04-02 11:19 | disposition home or self-care (01) ==
LOC: HO.HPODS 10:51
PROVIDERS: PCP Internal Medicine; Visit Provider Student in an Organized Health Care Education/Training Program
DX: M20.41 Other hammer toe(s) (acquired), right foot (principal); L85.8 Other specified epidermal thickening; M19.071 Primary osteoarthritis, right ankle and foot; M79.671 Pain in right foot
CPT/HCPCS: 99204